=== PATIENT | female | born 1965 | race African-American/Black ===

== ENCOUNTER 2017-01-19 09:20 | Emergency (ER) | payer OTHER ==
[~2017-01-19] VITALS: Ht 152.4 cm; Wt 62.1 kg
[2017-01-19 09:26] VITALS: BP 147/90
[2017-01-19] MEDS: DEXAMETHASONE 10 MG/ML VIAL IM ONE (11:27)
[2017-01-19] MEDS: KETOROLAC 60 MG/2 ML VIAL IM ONE (11:28)
[2017-01-19 13:34] VITALS: BP 150/71
== END 2017-01-19 13:34 | disposition home or self-care (01) ==
LOC: MED 09:20
DX: M47.892 Other spondylosis, cervical region (principal); M50.322 Other cervical disc degeneration at C5-C6 level; I10 Essential (primary) hypertension
CPT/HCPCS: 72040; 96372; 99284; J1100; J1885

== ENCOUNTER 2017-04-16 10:45 | Emergency (ER) | payer OTHER ==
[~2017-04-16] VITALS: Ht 152.4 cm; Wt 61.9 kg
[2017-04-16 11:12] VITALS: BP 155/75
--- NOTE | 2017-04-16 11:26 | NUR ---
Received ALOX4 with pt c/o having something stuck in her throat a few days ago and went to the ER but still feels like something is i her throat.
[2017-04-16 13:55] VITALS: BP 145/80
--- NOTE | 2017-04-16 13:56 | NUR ---
Patient discharged with v/s stable. Written and verbal after care instructions given and explained. Patient alert, oriented and verbalized understanding of instructions. Ambulatory with steady gait. All questions addressed prior to discharge. ID band removed. Patient advised to follow up with PMD. Rx of REGLAN given. Patient educated on indication of medication including possible reaction and side effects. Opportunity to ask questions provided and answered.
== END 2017-04-16 13:59 | disposition home or self-care (01) ==
LOC: MED 10:45
DX: K22.4 Dyskinesia of esophagus (principal); I10 Essential (primary) hypertension
CPT/HCPCS: 99283

== ENCOUNTER 2017-10-21 18:10 | Emergency (ER) | payer OTHER ==
[~2017-10-21] VITALS: Ht 12.7 cm; Wt 64.0 kg
[2017-10-21 18:33] VITALS: BP 139/85
--- NOTE | 2017-10-21 18:37 | NUR ---
PT AMBULATES TO BED 10
--- NOTE | 2017-10-21 18:38 | NUR ---
52YO F FOR MRASA SCREENING. WANTS TO BE CHECKED FOR MRSA. NO OTHER SYMPTOMS. NO MEDICAL C/O AT THIAS TIME. LS CLEAR THROUGHOUT, BS ACTIVE X4. ER MD BURT AWARE. WILL CONTINU TO MONITOR
--- NOTE | 2017-10-21 18:43 | NUR ---
Patient being evaluated by physician at bedside.
[2017-10-21 18:50] VITALS: BP 139/85
--- NOTE | 2017-10-21 18:50 | NUR ---
Patient discharged with v/s stable. Written and verbal after care instructions given and explained. Patient verbalized understanding. Ambulatory with steady gait. All questions addressed prior to discharge. Advised to follow up with PMD.
== END 2017-10-21 18:50 | disposition home or self-care (01) ==
LOC: MED 18:10
DX: Z22.322 Carrier or suspected carrier of Methicillin resistant Staphylococcus aureus (principal); I10 Essential (primary) hypertension
CPT/HCPCS: 87081; 99283

== ENCOUNTER 2018-05-16 11:37 | Emergency (ER) | payer OTHER ==
[~2018-05-16] VITALS: Ht 149.9 cm; Wt 64.0 kg
[2018-05-16 11:50] VITALS: BP 140/94
--- NOTE | 2018-05-16 12:10 | NUR ---
patient to lobby via w/c, awaiting available room. nad.
--- NOTE | 2018-05-16 12:28 | NUR ---
PATIENT WHEELCHAIR ASSISTED TO BED 1 AT THIS TIME.
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
[2018-05-16] MEDS ORDERED: HYDROcodone/APAP 5/325 MG 1 TAB TAB PO ONE (14:25)
[2018-05-16] MEDS ORDERED: KETOROLAC 60 MG/2 ML VIAL IM ONE (14:25)
[2018-05-16 15:48] VITALS: BP 169/90
--- NOTE | 2018-05-16 15:48 | NUR ---
Patient discharged with BP 169/90; DENIES TABOR AT THIS TIME,MD AWARE. Written and verbal after care instructions given and explained. Patient alert, oriented and verbalized understanding of instructions. Wheel Chair Assisted with to car. All questions addressed prior to discharge. ID band removed. Patient advised to follow up with PMD. Rx of NORCO given. Patient educated on indication of medication including possible reaction and side effects. Opportunity to ask questions provided and answered.
== END 2018-05-16 15:48 | disposition home or self-care (01) ==
LOC: MED 11:37
DX: S39.012A Strain of muscle, fascia and tendon of lower back, initial encounter (principal); S20.219A Contusion of unspecified front wall of thorax, initial encounter; S70.02XA Contusion of left hip, initial encounter; S70.01XA Contusion of right hip, initial encounter; I10 Essential (primary) hypertension; V89.2XXA Person injured in unspecified motor-vehicle accident, traffic, initial encounter; Y93.89 Activity, other specified; Y92.89 Other specified places as the place of occurrence of the external cause; Y99.8 Other external cause status
CPT/HCPCS: 71045; 72072; 72170; 81002; 81025; 93005; 96372; 99283; J1885